=== PATIENT | male | born 1960 | race Caucasian/White ===

== ENCOUNTER → 2020-09-29 | Day surgery (SDC) | payer OTHER ==
[~2020-09-29] VITALS: Ht 176.5 cm; Wt 69.5 kg
[~2020-09-29] MED LIST: ASPIRIN325 M1 PO; DICLOFENAC SODI75 MG PO; HCTZ25 MG PO; LIPITOR40 MG PO; METOPROLOL SUC100 MG PO; NORCO 5-325 TA1 EACH PO; ONDANSETRON ODT8 MG PO; PRILOSEC20 MG PO; VITAMIN D1000 UNIT PO; ZOFRAN4 MG PO
[2020-09-29 11:00] LABS: HCT 47.9 % (42.0-52.0); HGB 16.4 g/dl (13.2-18.0); MCH 33.3 pg (25.0-31.0); MCHC 34.2 g/dL (32.0-36.0); MCV 97.2 fL (78.0-100.0); MPV 9.9 fL (6.0-9.5); RBC 4.93 M/uL (4.70-6.00); RDW 13.2 % (11.5-14.0); WBC 10.5 K/uL (4.0-10.5)
[2020-09-29 11:19] LABS: ALBUMIN 3.6 g/dL (3.4-5.0); BILIRUBIN - TOTAL 0.7 mg/dL (0.2-1.0); BUN/CREAT RATIO (CALC) 10.2 RATIO; CREATININE 1.18 mg/dL (0.67-1.17); POTASSIUM 4.3 mmol/L (3.5-5.1); TOTAL PROTEIN 7.6 g/dL (6.4-8.2)
== END | disposition home or self-care (01) ==
LOC: FAS 10:29
PROVIDERS: Surgery
DX: K80.10 Calculus of gallbladder with chronic cholecystitis without obstruction (principal); K82.8 Other specified diseases of gallbladder; L92.8 Other granulomatous disorders of the skin and subcutaneous tissue; F41.9 Anxiety disorder, unspecified; M19.90 Unspecified osteoarthritis, unspecified site; I10 Essential (primary) hypertension; E78.00 Pure hypercholesterolemia, unspecified; K21.9 Gastro-esophageal reflux disease without esophagitis; F32.9 Major depressive disorder, single episode, unspecified; F17.210 Nicotine dependence, cigarettes, uncomplicated; Z86.73 Personal history of transient ischemic attack (TIA), and cerebral infarction without residual deficits; Z79.82 Long term (current) use of aspirin; Z79.899 Other long term (current) drug therapy
CPT/HCPCS: 36415; 74300; 80053; 93005; C1758; J1100; J2250; J2405; J2704; J2710; J3010; J3490; J7120; Q9967